=== PATIENT | female | born 1950 | race Caucasian/White ===

== ENCOUNTER 2018-05-04 09:27 | Emergency (ER) | payer MEDICARE, MEDICAID ==
[~2018-05-04] VITALS: Ht 160 cm; Wt 102.3 kg
[~2018-05-04 09:27] MED LIST: GUAI120L55 PO
[2018-05-04 09:54] VITALS: BP 180/90
[2018-05-04] MEDS ORDERED: HYDROcodone/acetaminophen 5mg/325mg tablet PO ONE (10:50)
[2018-05-04] MEDS ORDERED: CYCL-1 PO (10:53)
[2018-05-04] MEDS ORDERED: DICL50TA8 PO (10:53)
== END 2018-05-04 12:07 | disposition home or self-care (01) ==
LOC: ER 09:27
DX: M54.5 Low back pain (principal); I10 Essential (primary) hypertension; J45.909 Unspecified asthma, uncomplicated; M19.90 Unspecified osteoarthritis, unspecified site; G89.29 Other chronic pain; M54.9 Dorsalgia, unspecified; Z90.49 Acquired absence of other specified parts of digestive tract; Z88.6 Allergy status to analgesic agent
CPT/HCPCS: 99283